=== PATIENT | male | born 1970 | race African-American/Black ===

== ENCOUNTER 2016-08-29 12:30 | Inpatient (IN) | payer OTHER ==
[~2016-08-29] VITALS: Ht 182.9 cm; Wt 81.1 kg
[2016-08-29 13:46] LABS: AMPHETAMINE NEGATIVE (500 ng/mL); BARBITURATES NEGATIVE (200 ng/mL); BENZODIAZEPINES NEGATIVE (150 ng/mL); COCAINE NEGATIVE (150 ng/mL); INTERNAL CONTROLS VALID? YES; METHADONE NEGATIVE (200 ng/mL); METHAMPHETAMINE NEGATIVE (500 ng/mL); OPIATES (MORPHINE) NEGATIVE (100 ng/mL); OXYCODONE NEGATIVE (100 ng/mL); PHENCYCLIDINE NEGATIVE (25 ng/mL); PROPOXYPHENE NEGATIVE (300 ng/mL); THC CANNABINOIDS NEGATIVE (50 ng/mL); TRICYCLIC ANTIDEPRESSANTS NEGATIVE (300 ng/mL)
[2016-08-29 15:57] LABS: CHLORIDE 108 mEq/L (99-109); POTASSIUM 4.1 mEq/L (3.7-5.4); SODIUM 139 mEq/L (136-147)
[2016-08-29 15:58] LABS: GLUCOSE 80 mg/dL (70-99)
[2016-08-29 16:00] LABS: ANION GAP 8 MEQ/L (2-14)
[2016-08-29 16:02] LABS: GFR ESTIMATE (CALCULATED) > 59 mL/min/; SERUM ETHYL ALCOHOL < 10 mg/dL
[2016-08-29 16:04] LABS: UREA NITROGEN (BUN) 20 mg/dL (9-23)
[2016-08-29 16:05] LABS: SALICYLATE < 5.0 MG/DL (15-30)
[2016-08-29 16:36] LABS: MCH 34.5 PG (29.0-34.0); MCV 90.7 FL (86-99); MEAN PLAT.VOLUME 11.6 uM^3 (9.0-12.4); PLATELET COUNT 192 K/uL (156-360); RBC DIS.WIDTH-SD 38.8 % (39-53); RED BLOOD COUNT 4.52 M/uL (4.00-5.50); WHITE BLOOD COUNT 7.8 K/uL (4.1-10.2)
[2016-08-29] MEDS ORDERED: DEPAKOTE ER500 MG PO (21:18)
[2016-08-29 22:08] VITALS: BP 105/73
[2016-08-30 07:48] VITALS: BP 121/73
[2016-08-30 15:28] VITALS: BP 125/80
[2016-08-30] MEDS ORDERED: DEPAKOTE500 MG PO (16:43)
[2016-08-30] MEDS ORDERED: ACETAMINOPHEN325 M1 PO (16:47)
[2016-08-30] MEDS ORDERED: MILK OF MAGN PO (16:48)
[2016-08-30] MEDS ORDERED: THERAFLU COLD1 EAC3 PO (16:49)
[2016-08-31 07:45] VITALS: BP 137/87
[2016-08-31 15:09] VITALS: BP 123/56
[2016-09-01 09:16] VITALS: BP 123/72
[2016-09-01 15:52] VITALS: BP 128/87
[2016-09-02 07:50] VITALS: BP 113/69
[2016-09-02] MEDS ORDERED: DIVALPROEX SOD500 M1 PO (09:26)
[2016-09-02] MEDS ORDERED: DIVALPROEX SOD500 MG PO (09:26)
[2016-09-02] MEDS ORDERED: QUETIAPINE FUM200 MG PO (09:26)
[2016-09-02 15:19] VITALS: BP 132/71
== END 2016-09-03 10:45 | disposition designated cancer center or children's hospital (05) | DRG 885 ==
LOC: EME 12:30 → 1WEST 20:14 → EDOF 20:14 → 1WEST 21:47
PROVIDERS: Emergency Medicine
DX: F20.9 Schizophrenia, unspecified (principal); F39 Unspecified mood [affective] disorder; S06.9X0S Unspecified intracranial injury without loss of consciousness, sequela; G93.1 Anoxic brain damage, not elsewhere classified; V49.9XXS Car occupant (driver) (passenger) injured in unspecified traffic accident, sequela; F63.9 Impulse disorder, unspecified
CPT/HCPCS: 70450; 80048; 80164; 81003; 85027; 90837; 97150 GO; 97166 GO; 99281; 99284; G0480; J1630; J2060; J2250